=== PATIENT | female | born 1975 | race Caucasian/White ===

== ENCOUNTER 2017-01-03 14:15 | Emergency (ER) | payer MEDICAID ==
[~2017-01-03] VITALS: Ht 157.5 cm; Wt 63.5 kg
[2017-01-03 15:09] VITALS: BP 138/98
--- NOTE | 2017-01-03 15:54 | NUR ---
Patient being evaluated by physician family assistant Jonathan at bedside.
--- NOTE | 2017-01-03 16:01 | NUR ---
41/F presents to ED for evaluation of bilateral flank pain x2 days. Patient states recently being dx with sciatica a weeka ago. Pt c/o numbness/tingling pain going down both legs, 06/05. Pt states she last took Tylenol #3 last night. Pt states "Tylenol #3 and Soma work for me." Patient denies any injury or fall. Denies any trauma. Pt ambulates with steady gait. VSS at this time. Pt appears calm and relaxed at this time. at bedside.
[2017-01-03] MEDS ORDERED: MORPHINE SULFATE 5 MG/ML VIAL IM ONE (16:05)
[2017-01-03] MEDS ORDERED: MORPHINE SULFATE 10 MG/ML SYR ONE (16:11)
[2017-01-03] MEDS ORDERED: MORPHINE SULFATE 4 MG/ML SYR IM ONE (16:50)
--- NOTE | 2017-01-03 16:57 | NUR ---
Patient appears calm and relaxed at this time. Vitals are stable.
[2017-01-03 17:45] VITALS: BP 126/81
--- NOTE | 2017-01-03 17:45 | NUR ---
Patient discharged with v/s stable. Written and verbal after care instructions given and explained. Patient alert, oriented and verbalized understanding of instructions. Ambulatory with steady gait. All questions addressed prior to discharge. ID band removed. Patient advised to follow up with PMD. Rx of TYLENOL W/ COD,MEDROL given. Patient educated on indication of medication including possible reaction and side effects. Opportunity to ask questions provided and answered.
--- NOTE | 2017-01-03 17:45 | NUR ---
Chart checked and completed. The patient's care was reviewed and supervised by Suzanna Hong RN.
== END 2017-01-03 17:45 | disposition home or self-care (01) ==
LOC: MED 14:15
DX: M54.5 Low back pain (principal); I10 Essential (primary) hypertension; M79.661 Pain in right lower leg; M79.662 Pain in left lower leg; Z88.5 Allergy status to narcotic agent; Z91.018 Allergy to other foods
CPT/HCPCS: 81002; 81025; 96372; 99284; J2270

== ENCOUNTER 2017-03-02 17:44 | Emergency (ER) | payer SELFPAY ==
[~2017-03-02] VITALS: Ht 157.5 cm; Wt 62.6 kg
[2017-03-02 17:58] VITALS: BP 129/88
--- NOTE | 2017-03-02 20:22 | NUR ---
PATIENT LEFT WITHOUT BEING SEEN BY DR. BOWMAN. NO FURTHER CARE PROVIDED FOR PATIENT.
== END 2017-03-02 20:22 | disposition left against medical advice (07) ==
LOC: MED 17:44
DX: M54.5 Low back pain (principal); Z53.21 Procedure and treatment not carried out due to patient leaving prior to being seen by health care provider

== ENCOUNTER 2017-03-21 11:49 | Emergency (ER) | payer SELFPAY ==
[~2017-03-21] VITALS: Ht 157.5 cm; Wt 63.5 kg
[2017-03-21 11:53] VITALS: BP 117/94
--- NOTE | 2017-03-21 12:58 | NUR ---
Pt taken to bed 8.
--- NOTE | 2017-03-21 12:59 | NUR ---
Patient being evaluated by physician at bedside.
--- NOTE | 2017-03-21 13:00 | NUR ---
42/F presents with c/o generalized body pain. Pt states she has hx of SLE and recently dx with sciatica. Pt states "I have a lot of pain in my butt." Patient states she has not been to see a specialist d/t not having any insurance. Patient is c/o 10/10 generalized body pain, severe. Pt states she went at [facility] last week and waited 4 hours and left d/t the wait. VSS. is at bedside.
[2017-03-21] MEDS ORDERED: MORPHINE SULFATE 4 MG/ML SYR IM ONE ×2 (13:05→13:45)
[2017-03-21] MEDS ORDERED: ONDANSETRON 4 MG/2 ML VIAL IM ONE (13:05)
--- NOTE | 2017-03-21 13:42 | NUR ---
Patient found crying and continues to c/o pain. Pt states "I'm still waiting for the medication to kick in." Dr. Degroot made aware. Verbal order received to give another 4mg Morphine IM one time and then patient is to be discharged per Dr. Degroot.
[2017-03-21 16:10] VITALS: BP 121/74
== END 2017-03-21 15:10 | disposition home or self-care (01) ==
LOC: MED 11:49
DX: M79.7 Fibromyalgia (principal); M32.9 Systemic lupus erythematosus, unspecified; J45.909 Unspecified asthma, uncomplicated; Z88.5 Allergy status to narcotic agent; Z88.6 Allergy status to analgesic agent; Z88.8 Allergy status to other drugs, medicaments and biological substances
CPT/HCPCS: 96372; 99284; J2270; J2405

== ENCOUNTER 2017-06-23 08:29 | Emergency (ER) | payer MEDICAID ==
[~2017-06-23] VITALS: Ht 157.5 cm; Wt 63.0 kg
[2017-06-23 08:41] VITALS: BP 118/76
--- NOTE | 2017-06-23 08:44 | NUR ---
Pt taken evelyn bed 8.
--- NOTE | 2017-06-23 08:58 | NUR ---
Patient being evaluated by Dr. Corcoran at bedside.
--- NOTE | 2017-06-23 09:00 | NUR ---
42/F c/o generalized body aches for the past 3 days. Pt states "I think I'm having a lupus flare up." Pt reports she is going through a divorce, and stressed at work. Pt c/o 07/06, generalized body aches, constant. AOX4, clear speech. Ambulatory with steady gait. VSS.
[2017-06-23] MEDS ORDERED: KETOROLAC 30 MG/ML VIAL IM ONE (09:10)
[2017-06-23] MEDS ORDERED: DIAZEPAM 5 MG TAB PO ONE (09:10)
--- NOTE | 2017-06-23 09:13 | NUR ---
Pt refused Toradol injection. Pt states "Toradol doesn't work. I don't want it. I've had it here before. I usually get morphine and that works." Dr. Corcoran made aware.
[2017-06-23] MEDS ORDERED: MORPHINE SULFATE 4 MG/ML SYR IM ONE ×2 (09:15→10:10)
--- NOTE | 2017-06-23 09:20 | NUR ---
Lab at bedside for blood draw.
[2017-06-23 09:40] LABS: ANION GAP 13.4 (8-16); CALCIUM 8.3 mg/dL (8.5-10.1); CARBON DIOXIDE 26.3 mmol/L (21-32); CREATININE 0.7 mg/dL (0.6-1.3); POTASSIUM 4.7 mmol/L (3.5-5.1)
--- NOTE | 2017-06-23 10:03 | NUR ---
Dr. Corcoran at bedside discussing with patient.
--- NOTE | 2017-06-23 10:16 | NUR ---
Pt states "My daughter will pick me up." Will continue to monitor.
[2017-06-23 10:41] VITALS: BP 110/80
--- NOTE | 2017-06-23 10:41 | NUR ---
Chart checked and completed. The patient's care was reviewed and supervised by Suzanna Hong RN.
--- NOTE | 2017-06-23 10:41 | NUR ---
Patient discharged with v/s stable. Written and verbal after care instructions given and explained. Patient alert, oriented and verbalized understanding of instructions. Ambulatory with steady gait. All questions addressed prior to discharge. ID band removed. Patient advised to follow up with PMD. Rx of valium,tyl.with cod,naprosyn given. Patient educated on indication of medication including possible reaction and side effects. Opportunity to ask questions provided and answered.
== END 2017-06-23 10:41 | disposition home or self-care (01) ==
LOC: MED 08:29
DX: M79.1 Myalgia (principal); J45.909 Unspecified asthma, uncomplicated; Z88.5 Allergy status to narcotic agent; Z88.8 Allergy status to other drugs, medicaments and biological substances
CPT/HCPCS: 36415; 80048; 96374; 96376; 99284; J2270; J1885

== ENCOUNTER 2017-08-17 15:40 | Emergency (ER) | payer SELFPAY ==
[~2017-08-17] VITALS: Ht 157.5 cm; Wt 56.4 kg
[2017-08-17 16:05] VITALS: BP 126/74
--- NOTE | 2017-08-17 17:19 | NUR ---
PATIENT TO BED 5 AT THIS TIME.
[2017-08-17 17:46] LABS: BASOPHILS # (AUTO) 0.3 K/uL (0.00-0.22); BASOPHILS % (AUTO) 3.2 % (0.0-2.0); EOSINOPHILS # (AUTO) 0.4 K/uL (0-0.4); EOSINOPHILS % (AUTO) 4.1 % (0.0-4.0); LYMPHOCYTES # (AUTO) 2.3 K/uL (2.5-16.5); LYMPHOCYTES % (AUTO) 22.6 % (20.5-51.1); MEAN CORPUSCULAR HEMOGLOBIN 32 pg (27-31); MEAN CORPUSCULAR HGB CONC 33 g/dL (33-37); MEAN CORPUSCULAR VOLUME 95 fL (80-94); MONOCYTES # (AUTO) 1.1 K/uL (0.8-1.0); MONOCYTES % (AUTO) 10.2 % (1.7-9.3); NEUTROPHILS # (AUTO) 6.2 K/uL (1.8-7.7); NEUTROPHILS % (AUTO) 59.9 % (42.2-75.2); PLATELET COUNT (AUTO) 313 K/uL (140-450); RED BLOOD CELL COUNT(AUTO) 4.75 MIL/uL (4.20-5.40); WHITE BLOOD COUNT (AUTO) 10.3 K/uL (4.8-10.8)
--- NOTE | 2017-08-17 17:48 | NUR ---
PATIENT PRESENTS TO ED WITH letty shoulder pain and lower back pain x 5 days . PT STATES . DENIES N/V; SKIN IS PINK/WARM/DRY; AAOX4 WITH EVEN AND STEADY GAIT; LUNGS CLEAR BL; HR EVEN AND REGULAR; PT DENIES ANY FEVER, CP, SOB, OR COUGH AT THIS TIME; PATIENT STATES PAIN OF 8/10 AT THIS TIME; VSS; PATIENT POSITIONED FOR COMFORT; HOB ELEVATED; BEDRAILS UP X2; BED DOWN. ER MD MADE AWARE OF PT STATUS.
[2017-08-17] MEDS ORDERED: NACL 0.9% 1,000 ML IV ONE (17:50)
[2017-08-17] MEDS ORDERED: fentaNYL 0.05 MG/ML VIAL IVP ONE ×2 (17:50→18:30)
[2017-08-17 18:13] LABS: ALBUMIN 4.4 g/dL (3.4-5.0); ANION GAP 15.3 (8-16); CARBON DIOXIDE 26.5 mmol/L (21-32); CREATININE 0.7 mg/dL (0.6-1.3); POTASSIUM 3.8 mmol/L (3.5-5.1); TOTAL BILIRUBIN 0.3 mg/dL (0.0-1.0)
[2017-08-17] MEDS ORDERED: methylPREDNISolone SS 125 MG/2 ML VIAL IVP ONE (18:15)
--- NOTE | 2017-08-17 18:38 | NUR ---
MEDICATION ADMINISTERED ORDERED.
[2017-08-17 19:15] VITALS: BP 109/58
--- NOTE | 2017-08-17 19:15 | NUR ---
Patient discharged with v/s stable. Written and verbal after care instructions given and explained. Patient alert, oriented and verbalized understanding of instructions. Ambulatory with steady gait. All questions addressed prior to discharge. ID band removed. Patient advised to follow up with PMD. Rx of TYLENOL #3 given. Patient educated on indication of medication including possible reaction and side effects. Opportunity to ask questions provided and answered.
== END 2017-08-17 19:15 | disposition home or self-care (01) ==
LOC: MED 15:40
DX: M79.7 Fibromyalgia (principal); J45.909 Unspecified asthma, uncomplicated; Z88.8 Allergy status to other drugs, medicaments and biological substances
CPT/HCPCS: 36415; 80053; 85025; 85610; 85651; 85730; 86140; 96361; 96374; 96375; 96376; 99284; J2930; J3010; J7030

== ENCOUNTER 2017-09-08 09:00 | Emergency (ER) | payer SELFPAY ==
[~2017-09-08] VITALS: Ht 157.5 cm; Wt 57.2 kg
[2017-09-08 09:01] VITALS: BP 110/81
--- NOTE | 2017-09-08 09:16 | NUR ---
42/F BIB SELF PRESENT TO ER C/O 09/05 "ACHY" "ALL OVER" BODY PAIN x LAST NIGHT; PT DENIES ANY RECENT FEVERS OR COUGH OR COLD LIKE SYMPTOMS; DENIES N/V/D; SKIN IS PINK/WARM/DRY; AOX4 WITH EVEN AND STEADY GAIT; RR ARE EVEN AND UNLABORED; VSS; PATIENT POSITIONED FOR COMFORT; HOB ELEVATED; BED DOWN. ER MD MADE AWARE OF PT STATUS.
[2017-09-08] MEDS ORDERED: fentaNYL 0.05 MG/ML VIAL IM ONE (09:45)
--- NOTE | 2017-09-08 10:16 | NUR ---
Patient discharged with v/s stable. Written and verbal after care instructions given and explained. Patient alert, oriented and verbalized understanding of instructions. Ambulatory with steady gait. Patient states her daughter, Fatou Lo, is in ER lobby and will be driving her home. All questions addressed prior to discharge. ID band removed. Patient advised to follow up with PMD. Rx of [place] 5 given. Patient educated on indication of medication including possible reaction and side effects. Opportunity to ask questions provided and answered.
[2017-09-08 10:17] VITALS: BP 139/83
== END 2017-09-08 10:16 | disposition home or self-care (01) ==
LOC: MED 09:00
DX: M79.1 Myalgia (principal); G89.29 Other chronic pain; J45.909 Unspecified asthma, uncomplicated; Z88.6 Allergy status to analgesic agent
CPT/HCPCS: 81002; 81025; 96372; 99283; J3010

== ENCOUNTER 2018-10-25 14:23 | Emergency (ER) | payer OTHER ==
[~2018-10-25] VITALS: Ht 157.5 cm; Wt 59.9 kg
[2018-10-25 14:46] VITALS: BP 120/81
[2018-10-25] MEDS: NACL 0.9% 1,000 ML IV ONE (16:35)
[2018-10-25] MEDS: fentaNYL 0.05 MG/ML VIAL IVP ONE (16:39)
[2018-10-25] MEDS: ONDANSETRON 4 MG/2 ML VIAL IVP ONE (16:40)
[2018-10-25] MEDS: MORPHINE SULFATE 2 MG/ML SYR IVP ONE ×2 (16:49→17:58)
[2018-10-25 16:59] LABS: BASOPHILS % (AUTO) 0.3 % (0.0-2.0); EOSINOPHILS # (AUTO) 0.2 K/uL (0-0.4); EOSINOPHILS % (AUTO) 3.3 % (0.0-4.0); HEMATOCRIT 42.1 % (36-48); HEMOGLOBIN 14.4 g/dL (12.0-16.0); LYMPHOCYTES # (AUTO) 2.2 K/uL (2.5-16.5); LYMPHOCYTES % (AUTO) 34.3 % (20.5-51.1); MEAN CORPUSCULAR HEMOGLOBIN 32 pg (27-31); MEAN CORPUSCULAR HGB CONC 34 g/dL (33-37); MEAN CORPUSCULAR VOLUME 95.1 fL (80-94); MONOCYTES # (AUTO) 0.5 K/uL (0.8-1.0); MONOCYTES % (AUTO) 7.2 % (1.7-9.3); NEUTROPHILS # (AUTO) 3.6 K/uL (1.8-7.7); NEUTROPHILS % (AUTO) 54.9 % (42.2-75.2); PLATELET COUNT (AUTO) 256 K/uL (140-450); RED BLOOD CELL COUNT(AUTO) 4.43 MIL/uL (4.20-5.40); RED CELL DISTRIBUTION WIDTH 13.1 % (11.6-13.7); WHITE BLOOD COUNT (AUTO) 6.5 K/uL (4.8-10.8)
[2018-10-25 17:14] LABS: CARBON DIOXIDE 25.1 mmol/L (21-32); CREATININE 0.7 mg/dL (0.6-1.3); POTASSIUM 4.1 mmol/L (3.5-5.1); PROTHROMBIN TIME 9.7 secs (10.8-13.4)
[2018-10-25 17:20] LABS: ALBUMIN 4.1 g/dL (3.4-5.0); TOTAL BILIRUBIN 0.3 mg/dL (0.0-1.0)
[2018-10-25 18:15] VITALS: BP 120/82
== END 2018-10-25 18:15 | disposition home or self-care (01) ==
LOC: MED 14:23
DX: G89.4 Chronic pain syndrome (principal); L93.0 Discoid lupus erythematosus; G70.00 Myasthenia gravis without (acute) exacerbation; M79.7 Fibromyalgia; Z88.5 Allergy status to narcotic agent
CPT/HCPCS: 36415; 80053; 85025; 85610; 85730; 96374; 96375; 96376; 99283; J2270; J2405; J3010; J7030

== ENCOUNTER 2019-02-28 11:56 | Emergency (ER) | payer OTHER ==
[~2019-02-28] VITALS: Ht 157.5 cm; Wt 63.5 kg
[2019-02-28 12:13] VITALS: BP 130/80
--- NOTE | 2019-02-28 12:15 | NUR ---
43Y/F BIB SELF WITH C/O LEFT HAND PAIN X YESTERDAY, + SWELLING, + BRUISING, - DEFORMITY, PT STATES SHE WENT ROLLER SKATING WITH HER KIDS YESTERDAY, FELL AND CAUGHT HERSELF WITH HER HANDS. PMH: LUPUS, FIBROMYALGIA, HYSTERECTOMY
--- NOTE | 2019-02-28 12:18 | NUR ---
RAD AT BEDSIDE
[2019-02-28] MEDS ORDERED: IBUPROFEN 600 MG TAB PO ONE (13:05)
--- NOTE | 2019-02-28 13:05 | NUR ---
Patient being evaluated by physician at bedside.
[2019-02-28 13:38] VITALS: BP 125/75
== END 2019-02-28 13:38 | disposition home or self-care (01) ==
LOC: MED 11:56
DX: S63.92XA Sprain of unspecified part of left wrist and hand, initial encounter (principal); M79.7 Fibromyalgia; Z88.5 Allergy status to narcotic agent; Z88.8 Allergy status to other drugs, medicaments and biological substances; Z90.710 Acquired absence of both cervix and uterus; W01.0XXA Fall on same level from slipping, tripping and stumbling without subsequent striking against object, initial encounter; Y93.51 Activity, roller skating (inline) and skateboarding; Y92.89 Other specified places as the place of occurrence of the external cause; Y99.8 Other external cause status
CPT/HCPCS: 29125; 73140; 99283; Q0092

== ENCOUNTER 2019-08-20 19:21 | Emergency (ER) | payer OTHER ==
[~2019-08-20] VITALS: Ht 162.6 cm; Wt 70.3 kg
[2019-08-20 19:32] VITALS: BP 136/80
--- NOTE | 2019-08-20 19:34 | NUR ---
rosemarie. pt [id number]. to [facility]
--- NOTE | 2019-08-20 20:06 | NUR ---
PT AMBULATED TO BED #4
--- NOTE | 2019-08-20 20:08 | NUR ---
44/F presented to ED with c/o atypical cp with anxiety x last night. radiates to back. pain 5/10 pressure. denies n/v. no sob. no use of excessory muscles. 99% ra. patient states she does not take anything for anxiety. pmh- anxiety, lupus, fibromyalgia, myasthenia gravis, arthritis.
[2019-08-20] MEDS ORDERED: KETOROLAC 60 MG/2 ML VIAL IM ONE (22:50)
[2019-08-20] MEDS ORDERED: hydrOXYzine HCL 25 MG TAB PO ONE (23:10)
[2019-08-20 23:40] VITALS: BP 136/80
--- NOTE | 2019-08-20 23:45 | NUR ---
Patient discharged with v/s stable. Written and verbal after care instructions given and explained. Patient verbalized understanding. Ambulatory with to home. All questions addressed prior to discharge. Advised to follow up with PMD.
== END 2019-08-20 23:40 | disposition home or self-care (01) ==
LOC: MED 19:21
DX: F41.9 Anxiety disorder, unspecified (principal); M32.9 Systemic lupus erythematosus, unspecified; Z88.6 Allergy status to analgesic agent; Z88.8 Allergy status to other drugs, medicaments and biological substances; Z90.710 Acquired absence of both cervix and uterus
CPT/HCPCS: 81002; 81025; 93005; 99283; J1885

== ENCOUNTER 2021-06-28 17:45 | Emergency (ER) | payer OTHER ==
[~2021-06-28] VITALS: Ht 157.5 cm; Wt 63.0 kg
[2021-06-28 17:58] VITALS: BP 161/96
--- NOTE | 2021-06-28 19:20 | NUR ---
SEEN AND EXAMINED BY MATT, WITH ORDERS AND CARRIED OUT
[2021-06-28] MEDS ORDERED: LORazepam 1 MG TAB PO ONE (19:25)
[2021-06-28 19:55] LABS: BASOPHILS % (AUTO) 0.4 % (0.0-2.0); EOSINOPHILS # (AUTO) 0.1 K/uL (0-0.4); EOSINOPHILS % (AUTO) 0.7 % (0.0-4.0); HEMATOCRIT 43.9 % (36-48); HEMOGLOBIN 15.1 g/dL (12.0-16.0); LYMPHOCYTES # (AUTO) 1.3 K/uL (2.5-16.5); MEAN CORPUSCULAR HEMOGLOBIN 32 pg (27-31); MEAN CORPUSCULAR HGB CONC 34 g/dL (33-37); MEAN CORPUSCULAR VOLUME 93.9 fL (80-94); MONOCYTES # (AUTO) 0.4 K/uL (0.8-1.0); MONOCYTES % (AUTO) 3.5 % (1.7-9.3); NEUTROPHILS # (AUTO) 8.9 K/uL (1.8-7.7); NEUTROPHILS % (AUTO) 83.4 % (42.2-75.2); PLATELET COUNT (AUTO) 348 K/uL (140-450); RED BLOOD CELL COUNT(AUTO) 4.68 MIL/uL (4.20-5.40); RED CELL DISTRIBUTION WIDTH 12.8 % (11.6-13.7); WHITE BLOOD COUNT (AUTO) 10.7 K/uL (4.8-10.8)
[2021-06-28 20:10] LABS: ALBUMIN 4.5 g/dL (3.4-5.0); ANION GAP 14.6 (8-16); CARBON DIOXIDE 26.3 mmol/L (21-32); CREATININE 0.8 mg/dL (0.6-1.3); POTASSIUM 3.9 mmol/L (3.5-5.1); TOTAL BILIRUBIN 0.3 mg/dL (0.0-1.0)
--- NOTE | 2021-06-28 23:28 | NUR ---
Patient discharged with v/s stable. Written and verbal after care instructions given and explained. Patient verbalized understanding. Ambulatory with steady gait. All questions addressed prior to discharge. Advised to follow up with PMD.
== END 2021-06-28 23:28 | disposition home or self-care (01) ==
LOC: MED 17:45
DX: F41.9 Anxiety disorder, unspecified (principal); R41.3 Other amnesia
CPT/HCPCS: 36415; 70450; 80053; 85025; 99284